=== PATIENT | female | born 1985 | race Caucasian/White ===

== ENCOUNTER → 2017-08-17 | Outpatient (CLI) | payer OTHER ==
[~2017-08-17] MED LIST: CITALOPRAM HBR20 MG PO; PANTOPRAZOLE SO40 MG PO; PRENATAL FORMU1 EACH PO; Z.0.BENTYL20 MG MT; Z.0.NEXIUM40 MG MT; Z.0.VERAMYST10 GM NS; [UNRECOGNIZED DRUG - CODE] PO; [UNRECOGNIZED DRUG - OTHER] IH; [UNRECOGNIZED DRUG - OTHER] INH; [UNRECOGNIZED DRUG - OTHER] PO; citalopram PO
--- NOTE | 2017-08-17 14:55 | Diagnostic Imaging Report ---
PROCEDURE:X-RAY ABDOMEN - KUB COMPARISON:No relevant priors. INDICATIONS:CALCULI OF KIDNEY FINDINGS: Bowel: No dilated loops of bowel or abnormal air-fluid levels patterns. There is a moderate of stool in the right colon. Free air: No free air underneath the diaphragm. Calcifications: No calcifications over the renal shadows. A calcification in the left pelvis could represent either a ureteral stone or a phlebolith. This measures 3 mm. There is a phlebolith in the right pelvis. Lung bases: Visualized portions of the lung bases are clear. Bones: 6 non-rib bearing lumbar type vertebral bodies identified. No focal osseous lesions. Medical devices: Intrauterine device is present. CONCLUSION: 1. Calculus in the left pelvis could represent a ureteral calculus or phlebolith. No evidence of calculi over the renal shadows. 2. Moderate burden of stool in the right colon. No bowel obstruction. Dictated by: Meeta Newell M.D. on 08/17/2017 at 14:53 Electronically approved by: Meeta Newell M.D. on 08/17/2017 at 14:53
== END ==
LOC: RAD 13:33
PROVIDERS: ATTEND Urology
DX: N20.0 Calculus of kidney (principal)
CPT/HCPCS: 74018

== ENCOUNTER → 2018-01-10 | Outpatient (CLI) | payer OTHER ==
--- NOTE | 2018-01-10 15:01 | Diagnostic Imaging Report ---
PROCEDURE:X-RAY ABDOMEN - KUB COMPARISON:KUB 08/17/17. INDICATIONS:CALCULUS OF KIDNEY FINDINGS: No dilated loops of bowel or abnormal air-fluid levels patterns. No free air underneath the diaphragm. Visualized portions of the lung bases are clear. No definite calcifications are seen overlying the kidneys. Calcification measuring 3 mm in the left pelvis could represent ureteral stone or phlebolith, but is unchanged since radiograph on 08/17/17. Additional phlebolith projects over the right pelvis. IUD is present. CONCLUSION: No evidence of stones overlying the kidneys. Calcification in the left pelvis is unchanged since radiograph on 08/17/17, and therefore is felt to be more likely a phlebolith than ureteral stone. Dictated by: REJI SANCHEZ M.D. on 01/10/2018 at 15:06 Electronically approved by: REJI SANCHEZ M.D. on 01/10/2018 at 15:06
== END ==
LOC: RAD 13:52
PROVIDERS: ATTEND Urology
DX: N20.0 Calculus of kidney (principal)
CPT/HCPCS: 74018; 81025

== ENCOUNTER 2019-09-22 09:07 | Emergency (ER) | payer OTHER ==
[~2019-09-22] VITALS: Ht 167.6 cm; Wt 56.7 kg
[~2019-09-22 09:07] MED LIST changes: +FLUCONAZOLE150 MG PO; +NITROFURANTOIN100 MG PO
[2019-09-22] MEDS ORDERED: SODIUM CHLORIDE 0.9% 1000ML 1,000 ML IV STA (09:50)
[2019-09-22 10:03] LABS: BASOPHILS # (AUTO) 0.1 (0.0-0.1); BASOPHILS % 0.7 % (0.0-1.0); EOSINOPHILS # (AUTO) 0.2 (0.0-0.4); EOSINOPHILS % 2.9 % (0.0-6.0); HEMATOCRIT 42.1 % (34.2-44.1); HEMOGLOBIN 14.1 g/dL (12.0-16.0); LYMPHOCYTES # (AUTO) 1.8 (1.0-3.2); LYMPHOCYTES % 25.7 % (18.0-39.1); MEAN CORPUSCULAR HEMOGLOBIN 31.5 pg (28-32); MEAN CORPUSCULAR HGB CONC 33.5 g/dL (31-35); MEAN CORPUSCULAR VOLUME 94.2 fL (81-99); MONOCYTES # (AUTO) 0.6 (0.2-0.8); MONOCYTES % 8.8 % (4.4-11.3); NEUTROPHILS # (AUTO) 4.2 (2.1-6.9); NEUTROPHILS % 61.2 % (38.7-80.0); PLATELET COUNT 274 x10e3/uL (140-360); RED BLOOD COUNT 4.47 x10e6/uL (3.6-5.1)
[2019-09-22] MEDS ORDERED: METHYLPREDNISOLONE SOD SUCC 125 MG/2ML VIAL IV STA (10:08)
[2019-09-22 10:14] LABS: INR 0.95; PROTHROMBIN TIME 13.2 seconds (11.9-14.5)
[2019-09-22 10:15] LABS: PARTIAL THROMBOPLASTIN TIME 27.3 seconds (23.8-35.5)
[2019-09-22 10:16] LABS: ALANINE AMINOTRANSFERASE 11 IU/L (0-55); ALBUMIN 4.2 g/dL (3.5-5.0); ALBUMIN/GLOBULIN RATIO 1.3 (0.8-2.0); ALKALINE PHOSPHATASE 54 IU/L (40-150); ANION GAP 9.7 mmol/L (8-16); BLOOD UREA NITROGEN 11 mg/dL (7-26); BUN/CREATININE RATIO 16 (6-25); CALCIUM 9.4 mg/dL (8.4-10.2); CARBON DIOXIDE 28 mmol/L (22-29); CHLORIDE 105 mmol/L (98-107); CREATINE KINASE 33 IU/L (29-168); EST GLOMERULAR FILTRATION RATE > 60 ML/MIN (60-); GLUCOSE 87 mg/dL (74-118); POTASSIUM 3.7 mmol/L (3.5-5.1); SODIUM 139 mmol/L (136-145)
[2019-09-22 10:22] LABS: CLARITY,URINE SL CLOUDY (CLEAR); COLOR,URINE YELLOW (YELLOW)
[2019-09-22 10:23] LABS: BILIRUBIN,URINE NEGATIVE (NEGATIVE); KETONES,URINE NEGATIVE (NEGATIVE); LEUKOCYTE ESTERASE ,URINE TRACE (NEGATIVE); NITRITE,URINE NEGATIVE (NEGATIVE); PREGNANCY TEST, URINE NEGATIVE (NEGATIVE); PROTEIN,URINE DIPSTICK NEGATIVE (NEGATIVE); URINE UROBILINOGEN 0.2 mg/dL (0.2 - 1)
[2019-09-22 10:26] LABS: BACTERIA,URINE RARE /HPF; EPITHELIAL CELLS,URINE MODERATE /LPF; RBC,URINE 0-5 /HPF (0-5); WBC,URINE (MAN) 0-5 /HPF (0-5)
[2019-09-22] MEDS ORDERED: ONDANSETRON HCL INJ 2MG/ML 2ML 2 MG/ML VIAL IV ONE (10:30)
[2019-09-22] MEDS ORDERED: MORPHINE SULFATE INJ 4 MG/ML INJ 1ML IV ONE (10:30)
[2019-09-22] MEDS ORDERED: KETOROLAC TROMETHAMINE 30 MG/ML VIAL IV ONE (10:30)
--- NOTE | 2019-09-22 11:38 | Diagnostic Imaging Report ---
EXAM: CT Abdomen and Pelvis WITH contrast INDICATION: ^pelvic pain and also RUQ, known cholelith, ? pelvic congest COMPARISON: KUB 01/10/2018 TECHNIQUE: Abdomen and pelvis were scanned utilizing a multidetector helical scanner from the lung base to the pubic symphysis after administration of IV contrast. Coronal and sagittal reformations were obtained. Routine protocol was performed. Scan was performed when during portal venous phase. IV CONTRAST: 100 mL of Isovue-370 ORAL CONTRAST: None RADIATION DOSE: Total DLP: 229.97 mGy*cm Estimated effective dose: (DLP x 0.015 x size factor) mSv COMPLICATIONS: None FINDINGS: LINES and TUBES: None. LOWER THORAX: Unremarkable HEPATOBILIARY: 4 mm nonspecific hypodensity in the liver on series 2, image 14 is too small to characterize. Otherwise, no hepatic lesions. No intrahepatic biliary ductal dilation. The common bile duct is mildly prominent measuring 0.6 cm in diameter. GALLBLADDER: Tiny hyperdense stone near the gallbladder neck likely correlate with this patient cholelithiasis. No wall thickening or pericholecystic fluid collection. SPLEEN: No splenomegaly. PANCREAS: No focal masses or ductal dilatation. ADRENALS: No adrenal nodules KIDNEYS/URETERS: Kidneys enhance symmetrically. No hydronephrosis. No cystic or solid mass lesions. No stones. GI TRACT: No abnormal distention, wall thickening, or evidence of bowel obstruction. Appendix is normal. PELVIC ORGANS/BLADDER: Unremarkable. IUD appears in adequate position. LYMPH NODES: No lymphadenopathy. VESSELS: Unremarkable. PERITONEUM / RETROPERITONEUM: No free air or fluid. BONES: Unremarkable. SOFT TISSUES: Unremarkable. IMPRESSION: Tiny gallstones without gallbladder wall thickening or pericholecystic fluid collection. Nonspecific mildly prominent of the common bile duct without visualized hyperdense stones. Otherwise, unremarkable CT abdomen and pelvis. Signed by: Dr. Mary Costello M.D. on 09/22/2019 11:35 AM
[2019-09-23] MEDS ORDERED: IOPAMIDOL 370 MG/ML 200 ML INFUS..BTL INJ ONE (13:00)
[2019-09-23] MEDS ORDERED: SODIUM CHLORIDE 0.9% INJ 50 ML BAG ONE (13:00)
[2019-09-25] MEDS ORDERED: DICYCLOMINE HCL20 MG PO (10:42)
[2019-09-25] MEDS ORDERED: ULTRAM 50MG50 MG PO (10:43)
[2019-09-25] MEDS ORDERED: ONDASETRON PO (10:44)
== END 2019-09-22 12:09 | disposition home or self-care (01) ==
LOC: ER 09:07
DX: K80.20 Calculus of gallbladder without cholecystitis without obstruction (principal); R10.84 Generalized abdominal pain; Z91.018 Allergy to other foods; Z91.013 Allergy to seafood
CPT/HCPCS: 36415; 74177; 80053; 81001; 81025; 82550; 82553; 83690; 84484; 85025; 85610; 85730; 87086; 99284; J1885; J2270; J2405; J2930; J7030; Q9967

== ENCOUNTER → 2019-09-25 | Day surgery (SDC) | payer OTHER ==
[2019-09-21 14:22] LABS: BASOPHILS # (AUTO) 0.1 (0.0-0.1); BASOPHILS % 0.7 % (0.0-1.0); EOSINOPHILS # (AUTO) 0.2 (0.0-0.4); EOSINOPHILS % 1.8 % (0.0-6.0); HEMATOCRIT 41.5 % (34.2-44.1); HEMOGLOBIN 13.7 g/dL (12.0-16.0); LYMPHOCYTES % 18.8 % (18.0-39.1); MEAN CORPUSCULAR HEMOGLOBIN 31.3 pg (28-32); MEAN CORPUSCULAR VOLUME 94.7 fL (81-99); MONOCYTES % 9.1 % (4.4-11.3); NEUTROPHILS # (AUTO) 7.2 (2.1-6.9); NEUTROPHILS % 69.3 % (38.7-80.0); PLATELET COUNT 275 x10e3/uL (140-360); RED BLOOD COUNT 4.38 x10e6/uL (3.6-5.1)
[2019-09-21 14:58] LABS: ALANINE AMINOTRANSFERASE 11 IU/L (0-55); ALBUMIN/GLOBULIN RATIO 1.2 (0.8-2.0); ALKALINE PHOSPHATASE 54 IU/L (40-150); ANION GAP 9.9 mmol/L (8-16); BLOOD UREA NITROGEN 12 mg/dL (7-26); BUN/CREATININE RATIO 17 (6-25); CALCIUM 9.4 mg/dL (8.4-10.2); CARBON DIOXIDE 29 mmol/L (22-29); CHLORIDE 103 mmol/L (98-107); EST GLOMERULAR FILTRATION RATE > 60 ML/MIN (60-); GLUCOSE 106 mg/dL (74-118); POTASSIUM 3.9 mmol/L (3.5-5.1); SODIUM 138 mmol/L (136-145)
[~2019-09-25] MED LIST changes: +BUPIVACAINE HCL 0.5% INJ 30 ML VIAL INJ ONE; +CEFAZOLIN SOD 1 GM/NS 50ML 100 ML IV ONE; +DEXAMETHASONE SOD PHOS INJ 4 MG/ML VIAL ONE; +DICYCLOMINE HCL20 MG PO; +FENTANYL CITRATE/PF 100MCG/2 ML INJ ONE; +HYDROMORPHONE 1MG/1ML INJ ONE; +LIDOCAINE HCL 2% LOCAL INJ 5 ML SDV VIAL INJ ONE; +METOCLOPRAMIDE HCL 10 MG/2ML VIAL ONE; +MIDAZOLAM HCL 2 MG/2 ML VIAL ONE; +ONDANSETRON HCL INJ 2MG/ML 2ML 2 MG/ML VIAL ONE; +ONDASETRON PO; +PROPOFOL IV EMULSION 10 MG/ML 20 ML VIAL ONE; +ROCURONIUM BROMIDE 10 MG/ML 5ML VIAL IV ONE; +SEVOFLURANE INHAL SOLN 250 ML PEN BTL ONE; +SUGAMMADEX SODIUM 200 MG/2 ML VIAL IV ONE; +ULTRAM 50MG50 MG PO
--- NOTE | 2019-09-25 12:49 | Operative Report ---
DATE OF PROCEDURE: 09/25/2019 SURGEON: Toro Donaldson MD PREOPERATIVE DIAGNOSES: [id number] cholecystitis and cholelithiasis. POSTOPERATIVE DIAGNOSES: [id number] cholecystitis and cholelithiasis. PROCEDURE: Diagnostic laparoscopy, laparoscopic cholecystectomy. 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 ANESTHESIA: General. INDICATIONS AND FINDINGS: The patient is a 34-year-old female, who complains of right upper quadrant abdominal pain that is getting progressively worse. She did go to the emergency room recently. Workup revealed gallstones. At surgery, the patient was found to have gallbladder distension with extensive adhesions involving the omentum and duodenum over the neck and fundus of the gallbladder. Cystic duct was about 3 mm in diameter. Common bile duct was about 6 mm in diameter. Liver, stomach, lower abdomen all appeared normal. TECHNIQUE: After adequate general endotracheal anesthesia, the patient in supine position, the abdomen was prepped and draped in sterile fashion with ChloraPrep solution. Skin in the umbilicus was infiltrated with 0.5% Marcaine. Incision was made in the umbilicus. Abdominal wall was elevated. Veress needle was introduced. Pneumoperitoneum was then created. A 10 mm trocar and cannula were then passed through the umbilical wound. Laparoscopic camera was introduced. Initial laparoscopy revealed the gallbladder to be somewhat distended. Liver, stomach, and lower abdomen all appeared normal. A 10 mm trocar and cannula were placed in the epigastrium. Two 5 mm trocars and cannulas were placed in right upper quadrant. These were placed under direct vision. Fundus of the gallbladder was grasped, retracted superiorly. There were adhesions over the neck and fundus of the gallbladder involving omentum and duodenum. These were lysed staying close to the gallbladder. The gallbladder cystic duct junction was dissected free. Cystic artery was also dissected free. The cystic artery was divided between hemoclips close to the gallbladder. Cystic duct was also divided between hemoclips with 3 clips being left on the common bile duct side. The gallbladder was dissected free from the liver using scissors and electrocautery. Once it was entirely free, it was placed into an Endopouch and brought through the epigastric cannula. There were no stones that are definitely palpable. Gallbladder bed was inspected for hemostasis, which was seen to be adequate. It was irrigated with saline. All fluid aspirated and inspected for hemostasis, which was seen to be adequate. Instruments and cannulas were removed. Pneumoperitoneum was evacuated. Wounds were then closed. Fascia in the umbilical and epigastric wound closed with 0 Vicryl. Skin to all wounds closed with 4-0 Vicryl in subcuticular fashion. Dermabond and sterile dressing were applied to each wound. The patient tolerated the procedure well. Estimated blood loss was 5 mL. There were no complications. All counts were correct. The patient was taken to the recovery room in satisfactory condition. MD KRAIG MoralesG/MODL /[id number] cc: Vu Warner MD
[2019-09-25 12:55] VITALS: BP 129/75
== END | disposition home or self-care (01) ==
LOC: OR 09:47 → EDSTATUS 12:00
PROVIDERS: ATTEND Surgery
DX: K80.12 Calculus of gallbladder with acute and chronic cholecystitis without obstruction (principal); K82.8 Other specified diseases of gallbladder; I10 Essential (primary) hypertension
CPT/HCPCS: 36415; 47562; 80053; 81025; 84702; 85025; 88304; J0690; J1100; J1170; J2001; J2250; J2405; J2704; J2765; J3010

== ENCOUNTER 2020-07-02 16:59 | Emergency (ER) | payer OTHER ==
[~2020-07-02] VITALS: Ht 167.6 cm; Wt 56.7 kg
[~2020-07-02 16:59] MED LIST changes: -BUPIVACAINE HCL 0.5% INJ 30 ML VIAL INJ ONE; -CEFAZOLIN SOD 1 GM/NS 50ML 100 ML IV ONE; -DEXAMETHASONE SOD PHOS INJ 4 MG/ML VIAL ONE; -FENTANYL CITRATE/PF 100MCG/2 ML INJ ONE; -HYDROMORPHONE 1MG/1ML INJ ONE; -LIDOCAINE HCL 2% LOCAL INJ 5 ML SDV VIAL INJ ONE; -METOCLOPRAMIDE HCL 10 MG/2ML VIAL ONE; -MIDAZOLAM HCL 2 MG/2 ML VIAL ONE; -ONDANSETRON HCL INJ 2MG/ML 2ML 2 MG/ML VIAL ONE; -PROPOFOL IV EMULSION 10 MG/ML 20 ML VIAL ONE; -ROCURONIUM BROMIDE 10 MG/ML 5ML VIAL IV ONE; -SEVOFLURANE INHAL SOLN 250 ML PEN BTL ONE; -SUGAMMADEX SODIUM 200 MG/2 ML VIAL IV ONE
[2020-07-02] MEDS ORDERED: ONDANSETRON HCL INJ 2MG/ML 2ML 2 MG/ML VIAL IV STA (17:27)
[2020-07-02] MEDS ORDERED: LACTATED RINGER'S 1,000 ML INJ ONE (17:30)
[2020-07-02 17:56] LABS: CLARITY,URINE SL CLOUDY (CLEAR); COLOR,URINE YELLOW (YELLOW)
[2020-07-02 17:57] LABS: KETONES,URINE 1+ (NEGATIVE); LEUKOCYTE ESTERASE ,URINE MODERATE (NEGATIVE); NITRITE,URINE NEGATIVE (NEGATIVE); PROTEIN,URINE DIPSTICK NEGATIVE (NEGATIVE); URINE UROBILINOGEN 1 mg/dL (0.2 - 1)
[2020-07-02 17:59] LABS: BASOPHILS # (AUTO) 0.1 (0.0-0.1); BASOPHILS % 0.5 % (0.0-1.0); EOSINOPHILS % 0.1 % (0.0-6.0); HEMATOCRIT 41.7 % (34.2-44.1); HEMOGLOBIN 13.5 g/dL (12.0-16.0); LYMPHOCYTES # (AUTO) 1.1 (1.0-3.2); LYMPHOCYTES % 6.4 % (18.0-39.1); MEAN CORPUSCULAR HEMOGLOBIN 30.3 pg (28-32); MEAN CORPUSCULAR HGB CONC 32.4 g/dL (31-35); MEAN CORPUSCULAR VOLUME 93.5 fL (81-99); MONOCYTES # (AUTO) 1.3 (0.2-0.8); MONOCYTES % 7.6 % (4.4-11.3); NEUTROPHILS # (AUTO) 14.8 (2.1-6.9); NEUTROPHILS % 83.9 % (38.7-80.0); PLATELET COUNT 308 x10e3/uL (140-360); RED BLOOD COUNT 4.46 x10e6/uL (3.6-5.1); RED CELL DISTRIBUTION WIDTH 12.1 % (11.7-14.4)
[2020-07-02 18:07] LABS: BACTERIA,URINE MODERATE /HPF; EPITHELIAL CELLS,URINE MANY /LPF; RBC,URINE 0-5 /HPF (0-5); TRANSITIONAL EPI CELLS,URINE MODERATE
[2020-07-02] MEDS ORDERED: FAMOTIDINE 20 MG/2 ML VIAL IV STA (18:10)
[2020-07-02 18:17] LABS: ALANINE AMINOTRANSFERASE 22 IU/L (0-55); ALBUMIN 4.5 g/dL (3.5-5.0); ALBUMIN/GLOBULIN RATIO 1.2 (0.8-2.0); ALKALINE PHOSPHATASE 67 IU/L (40-150); ANION GAP 13.7 mmol/L (8-16); BLOOD UREA NITROGEN 9 mg/dL (7-26); BUN/CREATININE RATIO 13 (6-25); CALCIUM 8.7 mg/dL (8.4-10.2); CARBON DIOXIDE 26 mmol/L (22-29); CHLORIDE 104 mmol/L (98-107); CREATININE, SERUM 0.71 mg/dL (0.57-1.11); EST GLOMERULAR FILTRATION RATE > 60 ML/MIN (60-); GLUCOSE 102 mg/dL (74-118); LIPASE 25 U/L (8-78); POTASSIUM 3.7 mmol/L (3.5-5.1); SODIUM 140 mmol/L (136-145)
[2020-07-02] MEDS ORDERED: ZOFRAN4 MG PO (18:54)
[2020-07-02] MEDS ORDERED: KEFLEX500 MG PO (18:58)
[2020-07-02 19:17] VITALS: BP 147/92
== END 2020-07-02 19:18 | disposition home or self-care (01) ==
LOC: ER 17:26
DX: Z91.041 Radiographic dye allergy status (principal); N39.0 Urinary tract infection, site not specified; R11.2 Nausea with vomiting, unspecified; Z91.018 Allergy to other foods; Z91.013 Allergy to seafood
CPT/HCPCS: 36415; 80053; 81001; 83690; 84702; 85025; 99284; J2405; J7121